=== PATIENT | male | born 1945 | race Caucasian/White ===

== ENCOUNTER → 2018-08-29 | Outpatient (CLI) | payer MEDICARE ==
[~2018-08-29] MED LIST: ALB6.7R INH; BUPR-149 PO; CEPH-13 PO; DOXA2TAB58 PO; DOXA8TAB62 PO; FLU IM; FLUNR ENA; LORA-630 PO; PER PO; RIV10 PO; ROPI2TAB3 PO; SIMV-54 PO; SULF-198 PO; TRAZ50TA52 PO; VENL37.594 PO
--- NOTE | 2018-08-29 09:54 | EKG ---
FACILITY: [facility] PATIENT NAME: RIKI ESPARZA : [id number] MR: [id number] V: [id number] EXAM DATE: ORDERING PHYSICIAN: IGNACIO CERRATO TECHNOLOGIST: MILLICENT Oscar Reason : PRE-OP KNEE Blood Pressure : / mmHG Vent. Rate : 050 BPM Atrial Rate : 050 BPM P-R Int : 166 ms QRS Dur : 094 ms QT Int : 392 ms P-R-T Axes : 056 061 052 degrees QTc Int : 357 ms Sinus bradycardia Otherwise normal ECG When compared with ECG of 03-MAR-2013 09:21, Unchanged Confirmed by NEVIN MENDEZ ([id number]) on 08/29/2018 1:46:21 PM Referred By: BLOSSOM Confirmed By:NEVIN MENDEZ
== END ==
LOC: RESP 09:39
PROVIDERS: ATTEND Anesthesiology
DX: Z01.810 Encounter for preprocedural cardiovascular examination (principal); S83.242A Other tear of medial meniscus, current injury, left knee, initial encounter
CPT/HCPCS: 93005